=== PATIENT | female | born 1960 | race Caucasian/White ===

== ENCOUNTER → 2016-10-05 | Day surgery (SDC) | payer OTHER ==
[~2016-10-05] MED LIST: ACETAMINOPHEN 1000 MG/100 ML VIAL IV ONE; ACETAMINOPHEN/HYDROcodone 325 MG/5 MG TAB ONE; ARTIFICIAL TEARS OPTH OINT 3.5 APPLIC/3.5 GM TUBO ONE; BALANCED SALT SOLN OPHT IRRIG 15 ML BTL ONE; LACTATED RINGER'S 1,000 ML BAG IV ONE; LACTATED RINGER'S 1000 ML INJ 1,000 ML ONE; LIDOCAINE 1%/EPINEPHrine 1:100,000 SOLN 50 ML VIAL ONE; LIDOCAINE 2%/EPINEPHrine PF 1:200,000 20ML SDV ONE; LIDOCAINE HCL 1% 50 ML VIAL ONE; MIDAZOLAM HCL 2 MG/2 ML VIAL ONE; MORPHINE SULFATE 4 MG/ML INJ ONE; NEOMYCIN/POLYMYXIN/BACITRACIN OINT 15 GM TUBE ONE; NEOMYCIN/POLYMYXIN/HYDROCORT OTIC SUSP 10 ML BTL ONE; ONDANSETRON HCL 4 MG/2 ML VIAL IV PUSH ONE; PROPOFOL 200 MG/20 ML AMP IV ONE; ceFAZolin INJ 1,000 MG VIAL ONE
--- NOTE | 2016-10-05 13:01 | TN ---
cc: RICKEY LLAMAS M.D. DATE OF SURGERY 10/05/2016 PREOPERATIVE DIAGNOSIS Facial aging POSTOPERATIVE DIAGNOSIS Facial aging PROCEDURE Upper and lower lid blepharoplasty, cervicofacial rhytidectomy, perioral fat injections and perioral laser resurfacing. SURGEON Rickey Llamas MD TRACTOR MECHANIC Mai Toribio, M3 ANESTHESIA LMA general, also utilized a diluted lidocaine in which 30 cc of 1% lidocaine with epinephrine was mixed in with 250 cc of normal saline DRAINS Two 10 mm MARIELENA drains COMPLICATIONS None TOTAL FAT INJECTED INTO THE PERIORAL 30, 15 cc per side including in the nasolabial area and marionette lines. PROCEDURE She was properly consented, marked, properly anesthetized, the skin was sterilized with Microcyn and sterile draping applied. I began the procedure by harvesting fat, a total of 60 cc where after it was properly canted and it was suitable for injection for approximately 30 cc. It was properly applied very carefully on a droplet at a time in the nasolabial fold marionette lines on each side, 15 cc per side for a grand total of 30-hour. Our excision of skin was done on the upper eyelid. Exploration of the inner fat bags was carried out and very minimal was removed. Through a subciliary incision, the myocutaneous flap was elevated by sparing 2-3 mm of orbicularis oculi muscle. Dissected the orbital septum down to the arcus marginalis at which time utilizing electrocautery, this was properly opened. Redistributing of the fat bags were properly done medial, internal and laterally anchored with six 6-0 Monocryl sutures the arcus marginalis. Release of the internal attached of the orbicularis oculi muscle were done where needed in order to properly accommodate this fat. After that, a 5-0 clear nylon canthopexy was done supported anterior, superior inner aspect of the orbital rim. Finally, the wounds were closed in multiple layers of 6-0 Monocryl suture and 6-0 Prolene suture. At this point, our attention was directed to the submental area where through a 15 blade and through 4-1/2 to 5 cm the dissection was down below to the thyroid cartilage. Lipectomy was done on the pre-platysma plane as well as a post-platysma plane. Plication was done of the platysma utilizing 4-0 Mersilene suture and a medial myectomy was done to re-accommodate the muscle. Through a pre and postauricular incision, I proceeded to elevate the cervicofacial flap proximal to the nasolabial folds and right at the base of the neck. SMAS plication was done utilizing Mersilene suture 4-0 in a running fashion where needed and the lateral platysmaplasty was done after lipectomy of the neck muscle was done. With this, through a separate stab wound, a 10 mm Reliavac drain was brought out and secured in place. After that, I proceeded to perform the closure after assuring meticulous hemostasis utilizing a 3-0 Monocryl suture in the postauricular area and 5-0 Monocryl suture in the preauricular area along with fast-absorbing gut. For the skin in the postauricular area, I utilized surgical miguel a. After this was properly performed ,I closed the submental incision utilizing 3-0 Monocryl suture and Steri-Strips applied. At this point utilizing the Erbium laser with 200 joules, 25 coag two passes were done in the perioral area with 150 feathering. This was properly dressed. At the end point, there was pinpoint bleeding and this was properly thoroughly cleaned and was applied. Absorbing compression dressing was applied at this point. The patient was awakened and extubated in the operating room. She was transferred back to the postanesthesia care unit in stable conditions. No complications were appreciated and the patient tolerated the procedure fairly well. MD IRA Gill/PARI /12:21 PM /12:43 PM
== END | disposition home or self-care (01) ==
LOC: ESDC 06:17
PROVIDERS: ATTEND Plastic Surgery
DX: Z41.1 Encounter for cosmetic surgery (principal)
CPT/HCPCS: 00103; 00300; 11954; 15781; 15820; 15822; 15828; J0131; J0690; J2250; J2270; J2405; J3010; J7120